=== PATIENT | female | born 1990 ===

== ENCOUNTER 2018-02-24 23:26 | Emergency (ER) | payer OTHER ==
[~2018-02-24] VITALS: Ht 149.9 cm; Wt 59.9 kg
[2018-02-25 00:28] VITALS: BP 124/74
== END 2018-02-25 00:29 | disposition home or self-care (01) ==
LOC: ED 23:56
DX: S40.021A Contusion of right upper arm, initial encounter (principal); X58.XXXA Exposure to other specified factors, initial encounter; Y93.89 Activity, other specified; Y92.89 Other specified places as the place of occurrence of the external cause; Y99.8 Other external cause status
CPT/HCPCS: 99283